=== PATIENT | female | born 1990 | race Caucasian/White ===

== ENCOUNTER → 2018-12-19 16:24 | Outpatient (CLI) | payer SELFPAY ==
--- NOTE | 2018-12-19 16:41 | ECG_ITS ---
APPROVED REPORT Exam: Resting ECG HR:76 bpm ECG Measurements Heart Rate 76 AXES [place] 154 P 39 QRSd 96 QRS 91 QT 392 T 43 QTc 441 <Conclusion> Sinus rhythm with premature supraventricular complexes with occasional premature ventricular complexes Rightward axis T wave abnormality, consider anterior ischemia Abnormal ECG Electronically signed by : Harjit Espinoza, 12/19/2018 20:02:18
== END ==
PROVIDERS: PCP Family Medicine; Visit Provider Family Medicine
DX: I45.9 Conduction disorder, unspecified (principal)
CPT/HCPCS: 93005

== ENCOUNTER → 2021-02-11 15:15 | Outpatient (CLI) | payer SELFPAY ==
--- NOTE | 2021-02-11 15:21 | ECG_ITS ---
APPROVED REPORT Exam: Resting ECG HR:72 bpm ECG Measurements Heart Rate 72 AXES [place] 176 P 60 QRSd 104 QRS 99 QT 400 T 54 QTc 438 Conclusion Sinus rhythm with frequent premature ventricular complexes Rightward axis Borderline ECG Electronically signed by : Harjit Espinoza MD 02/13/2021 12:13:39
== END ==
PROVIDERS: PCP Family Medicine; Visit Provider Physician Assistant
DX: I49.9 Cardiac arrhythmia, unspecified (principal)
CPT/HCPCS: 93005

== ENCOUNTER 2021-02-11 16:04 | Emergency (ER) | payer SELFPAY ==
[2021-02-11 16:05] VITALS: BP 136/99; PULSE 83; RESP 18; TEMP 37.1; O2SAT 97; BMI 35.4
--- NOTE | 2021-02-11 16:37 | XR_ITS ---
PROCEDURE INFORMATION: Exam: XR Chest Exam date and time: 02/11/2021 4:37 PM Age: 30 years old Clinical indication: Other: Heart racing; Additional info: Feelings of heart racing TECHNIQUE: Imaging protocol: XR of the chest. Views: 2 views. COMPARISON: No relevant prior studies available. FINDINGS: Lungs: Unremarkable. No consolidation. Pleural spaces: Unremarkable. No pleural effusion. No pneumothorax. Heart/Mediastinum: Unremarkable. No cardiomegaly. Bones/joints: Unremarkable. IMPRESSION: No acute findings.
--- NOTE | 2021-02-11 16:39 | PC.NURSE ---
ER gave verbal orders for pt
[2021-02-11 16:40] LABS: Basophils % 0.5 % (0.1-2.0); Eosinophils # 0.2 K/mm3 (0.0-0.4); Eosinophils % 2.2 % (0.1-12.0); Hematocrit 41.5 % (37.0-47.0); Hemoglobin 14.1 g/dL (12.2-16.2); Lymphocytes # 2.3 K/mm3 (0.7-4.5); Lymphocytes % 30.2 % (10-50); Mean Corpuscular Hemoglobin 28.8 pg (27.0-31.2); Mean Corpuscular Volume 84.7 fl (81-99); Mean Platelet Volume 7.3 fl (7.4-10.4); Monocytes # 0.4 K/mm3 (0.1-1.0); Neutrophils # 4.7 K/mm3 (1.8-7.8); Neutrophils % 62.1 % (37.0-80.0); Platelet Count 309 K/mm3 (142-424); Red Cell Distribution Width 14.6 % (11.5-17.5); White Blood Count 7.5 K/mm3 (4.8-10.8)
[2021-02-11 16:45] LABS: Alanine Aminotransferase 20 U/L (12-78); Albumin Level 4.5 g/dl (3.5-5.0); Albumin/Globulin Ratio 1.6 (1.1-1.8); Alkaline Phosphatase 59 U/L (38-126); Anion Gap 10.4 mEq/L (5-15); Aspartate Amino Transferase 31 U/L (14-36); Blood Urea Nitrogen 11 mg/dl (7-17); Calcium 9.5 mg/dl (8.4-10.2); Carbon Dioxide 30 mmol/L (22.0-30.0); Chloride 104 mmol/L (98-107); Creatinine Clearance Estimated 196 mL/min (50-200); Estimated Glomerular Filt Rate 117 ml/min (>60); GFR (African American) 142 ML/MIN (>60); Globulin 2.9 g/dL (1.3-3.2); Glucose 96 mg/dl (74-100); Potassium 3.4 mmoL/L (3.5-5.1); Sodium 141 mmol/L (136-145); Total Protein,Serum 7.4 g/dl (6.3-8.2)
--- NOTE | 2021-02-11 16:50 | [facility].EDGENADL ---
ED Disposition Clinical Impression: Palpitations, Premature ventricular contractions Disposition: Home, Self-Care Condition on Discharge: Good Instructions: Premature Ventricular Beats, DI for Arrhythmias, DI for Palpitations Additional Instructions: Call your primary care provider to arrange follow-up appointment. Return emergency department symptoms worsen. Referrals: Jim Perez MD [Primary Care Provider] - - Critical Care Critical Care Time: No Attestation: On 02/11/21, the high probability of a clinically significant, sudden or life threatening deterioration of the following system(s) required my full and direct attention, intervention and personal management. The time I documented below is in addition to time spent performing reported procedures but includes the following listed in this critical care notation. Medical Decision Making - Denny Inquiry Pt receiving controlled substance: No Vital Signs: 02/11/21 16:05 Temperature 98.7 F Temperature Source Oral Pulse Rate [Right Radial] 83 Respiratory Rate 18 Blood Pressure [Right Arm] 136/99 H Blood Pressure Mean [Right Arm] 111 Blood Pressure Source [Right Arm] Automatic Cuff Blood Pressure Position [Right Arm] Sitting 02 Sat by Pulse Oximetry 97 Oxygen Delivery Method Room Air - Lab Data Lab Results 02/11/21 16:21: WBC 7.5, RBC 4.90, Hgb 14.1, Hct 41.5, MCV 84.7, MCH 28.8, MCHC 34.0, RDW 14.6, Plt Count 309, MPV 7.3 L, Neut % (Auto) 62.1, Lymph % (Auto) 30.2, [place] % (Auto) 5.0, Eos % (Auto) 2.2, Baso % (Auto) 0.5, Neut # (Auto) 4.7, Lymph # (Auto) 2.3, [place] # (Auto) 0.4, Eos # (Auto) 0.2, Baso # (Auto) 0.0 02/11/21 16:21: Sodium 141, Potassium 3.4 L, Chloride 104, Carbon Dioxide 30, Anion Gap 10.4, BUN 11, Creatinine 0.60, Estimated Creat Clear 196, Estimated GFR 117, Est GFR ( Amer) 142, Glucose 96, Calcium 9.5, Total Bilirubin < 0.1 L, AST 31, ALT 20, Alkaline Phosphatase 59, Troponin I < 0.01, Total Protein 7.4, Albumin 4.5, Globulin 2.9, Albumin/Globulin Ratio 1.6 02/11/21 16:21: Serum HCG, Qual Negative 02/11/21 16:21: D-Dimer 0.48 02/11/21 16:21: NT-Pro-B Natriuret Pep 212 H Result diagrams: 02/11/21 16:21 02/11/21 16:21 Orders (Tests/Meds): ORDERS Category Date Time Status Thyroid Panel Stat Lab 02/11/21 16:21 Received Troponin I Q3H Lab 02/11/21 19:30 Ordered Troponin I Q3H Lab 02/11/21 22:30 Ordered - Radiology Data #1 Image(s): Chest Image Reviewed: Yes I reviewed the patient's radiology image, Yes I have reviewed radiologist's interpretation PROCEDURE INFORMATION: Exam: XR Chest Exam date and time: 02/11/2021 4:37 PM Age: 30 years old Clinical indication: Other: Heart racing; Additional info: Feelings of heart racing TECHNIQUE: Imaging protocol: XR of the chest. Views: 2 views. COMPARISON: No relevant prior studies available. FINDINGS: Lungs: Unremarkable. No consolidation. Pleural spaces: Unremarkable. No pleural effusion. No pneumothorax. Heart/Mediastinum: Unremarkable. No cardiomegaly. Bones/joints: Unremarkable. IMPRESSION: No acute findings. - ECG Data Tracing #1 EKG interpreted by Vidal Martinez MD: Rhythm: sinus Rate: 79 [place]: normal Ectopy: Frequent unifocal PVCs Conduction: normal ST Segment Changes: none T Wave Changes: none Q Waves: none No evidence of acute ischemia or injury - Physician Consults Physician Consulted: Hesham Time: 18:06 Reason -: Pt condition Comment/Response: Advised of patient's emergency department course, discharge, and instructions for follow-up. Medical Decision Narrative: The patient is having frequent PVCs which may account for her symptoms. No objective findings that are concerning for peripartum cardiomyopathy nor for thromboembolic disease. The patient says she needs to leave that at 6 PM, it is currently 5:55 PM. We have called Dr. Pérez
[2021-02-11 16:53] LABS: Bilirubin,Total < 0.1 mg/dl (0.2-1.3); HCG Qualitative, Serum Negative (Negative)
[2021-02-11 16:58] LABS: Troponin I < 0.01 ng/ml (0.00-0.034)
[2021-02-11 17:04] LABS: D-Dimer 0.48 ug/mL (0.0-0.5)
[2021-02-11 17:18] LABS: NT Pro Brain Natriuretic Pep. 212 pg/mL (0-125)
--- NOTE | 2021-02-11 17:36 | PC.NURSE ---
pt came out wanting a copy of the labs and said they need to leave soon if no one was coming in there, i advised there was an emergency and that they would be with them as soon as possible.
[2021-02-11 18:21] LABS: T4 (Thyroxine) 6.4 ug/dl (5.53-11.0); Triiodothryronine (T3) Uptake 32 % (23.5-40.5)
[2021-02-11 18:35] LABS: Thyroid Stimulating Hormone 1.83 uIU/mL (0.465-4.68)
[2021-02-11 19:32] VITALS: BP 140/82; PULSE 81; RESP 18; TEMP 37.1; O2SAT 97
== END 2021-02-11 18:00 | disposition home or self-care (01) ==
PROVIDERS: Emergency Provider Emergency Medicine; PCP Family Medicine
DX: I49.3 Ventricular premature depolarization (principal); R00.2 Palpitations
CPT/HCPCS: 71046; 80053; 83880; 84436; 84443; 84479; 84484; 84703; 85025; 85378; 99283